=== PATIENT | female | born 1945 | race Caucasian/White ===

== ENCOUNTER 2017-10-20 13:32 | Emergency (ER) | payer MEDICARE ==
[~2017-10-20] VITALS: Ht 157.5 cm; Wt 60.0 kg
[~2017-10-20 13:32] MED LIST: MECL25TA3 PO; SIMV40TA5 PO
[2017-10-20] MEDS ORDERED: LORAZEPAM 0.5MG TABLET PO ONE ×2 (16:30→21:30)
[2017-10-20] MEDS ORDERED: SODIUM CHLORIDE 0.9% 1,000 ML IV ONE (16:45)
[2017-10-20 17:04] LABS: BASOPHILS % 0.5 % (0.0-2.0); EOSINOPHILS % 0.1 % (0.0-5.0); HEMATOCRIT. 39.6 % (36.0-48.0); HEMOGLOBIN. 13.5 g/dL (12.0-16.0); LYMPHOCYTES % 15.5 % (20.0-50.0); MEAN CORPUSCULAR HEMOGLOBIN 28.5 pg (28.0-32.0); MEAN CORPUSCULAR VOLUME 83.6 fL (81.0-99.0); MEAN PLATELET VOLUME 6.9 fl (7.4-10.4); MONOCYTES % 4.7 % (2.0-8.0); NEUTROPHILS % 79.2 % (40.0-76.0); PLATELET 425 x1000/uL (130-400); RED BLOOD CELL COUNT 4.74 mill/uL (4.2-5.4); RED CELL DISTRIBUTION WIDTH 14.5 % (11.6-14.6)
[2017-10-20 17:17] LABS: CARBON DIOXIDE 27 mEq/L (21-32); CHLORIDE 101 mEq/L (98-107)
[2017-10-20 18:13] LABS: TROPONIN I < 0.02 ng/mL (0.00-0.04)
[2017-10-20 21:59] VITALS: BP 148/88
== END 2017-10-20 23:03 | disposition home or self-care (01) ==
LOC: ER 13:34
DX: F41.8 Other specified anxiety disorders (principal); F32.9 Major depressive disorder, single episode, unspecified; J44.9 Chronic obstructive pulmonary disease, unspecified; R00.2 Palpitations; E86.0 Dehydration; E78.00 Pure hypercholesterolemia, unspecified; R73.9 Hyperglycemia, unspecified; Z91.14 Patient's other noncompliance with medication regimen
CPT/HCPCS: 36415; 71010; 80048; 83880; 84443; 84484; 85025; 93005; 96360; 99285; J7030

== ENCOUNTER 2019-04-04 15:47 | Emergency (ER) | payer MEDICARE, MEDICAID ==
[~2019-04-04] VITALS: Ht 160 cm; Wt 60.0 kg
[2019-04-04] MEDS ORDERED: HYDROCODONE/ACETAMINOPHEN 5/325MG TABLET PO ONE (19:15)
[2019-04-04] MEDS ORDERED: IBUPROFEN 600MG TABLET PO ONE (19:15)
[2019-04-04 20:58] LABS: CLARITY URINE CLEAR (CLEAR); COLOR URINE YELLOW (YELLOW); KETONES URINE 1+ (NEGATIVE); LEUKOCYTE ESTERASE URINE NEGATIVE (NEGATIVE); NITRITE URINE NEGATIVE (NEGATIVE); OCCULT BLOOD URINE NEGATIVE (NEGATIVE); PROTEIN URINE NEGATIVE (NEGATIVE); SPECIFIC GRAVITY URINE 1.018 (1.005-1.030); UROBILINOGEN URINE 0.2 E.U./dL (0.2-1.0)
[2019-04-04 21:21] VITALS: BP 121/65
== END 2019-04-04 21:22 | disposition home or self-care (01) ==
LOC: ER 16:47
DX: S40.011A Contusion of right shoulder, initial encounter (principal); S93.401A Sprain of unspecified ligament of right ankle, initial encounter; F32.9 Major depressive disorder, single episode, unspecified; E78.00 Pure hypercholesterolemia, unspecified; W01.0XXA Fall on same level from slipping, tripping and stumbling without subsequent striking against object, initial encounter; Y93.89 Activity, other specified; Y92.018 Other place in single-family (private) house as the place of occurrence of the external cause
CPT/HCPCS: 73030; 73610; 99284